=== PATIENT | male | born 1960 | race Caucasian/White ===

== ENCOUNTER 2017-05-18 16:00 | Emergency (ER) | payer MEDICAID ==
[~2017-05-18 16:00] MED LIST: AMOX/CLAVULANATE 500/125 MG TAB PO SCH
[2017-05-18 16:17] VITALS: RESP 18; TEMP 97.9
--- NOTE | 2017-05-18 17:07 | EDPHY ---
H & P Time Seen by Provider: 05/18/17 16:57 HPI/ROS: CHIEF COMPLAINT: "my tooth hurts " HISTORY OF PRESENT ILLNESS: 56-year-old homeless male history of poor dentition complaining of left maxillary molar pain since last evening. Atraumatic. No fall. No fever or chills. No nuchal rigidity. No nausea or vomiting. PHYSICAL EXAM (Prior to examination, patient consented to physical exam, hands were washed and my usual and customary physical exam procedures followed) 1) GENERAL: Well-developed, well-nourished, alert and oriented. Appears to be in no acute distress. 2) HEAD: Normocephalic 3) HEENT: sclera anicteric. Poor dentition. No trismus no drooling. Floor of mouth soft no evidence of Vern's angina. No facial asymmetry or swelling. Tender to percussion left maxillary molar, unknown specific number secondary to multiple missing teeth. No evidence of abscess. 4) LUNGS: Breathing comfortably. Smoking Status: Current every day smoker Constitutional: Initial Vital Signs Temperature (C) 36.6 C 05/18/17 16:14 Heart Rate 72 05/18/17 16:14 Respiratory Rate 18 05/18/17 16:14 Blood Pressure 126/78 H 05/18/17 16:14 O2 Sat (%) 97 05/18/17 16:14 O2 Delivery Mode Room Air Allergies/Adverse Reactions: No Known Allergies Allergy (Verified 04/28/16 16:50) Home Medications: Medication Instructions Recorded Amoxicillin Trihydrate 500 mg PO Q8 7 Days cap 05/18/17 [Amoxicillin 500mg cap] Hydrocodone/APAP 5/325 [[place] 1 tab PO Q6 PRN #7 tab 05/18/17 5/325 (RX)] MDM/Departure - MDM Procedures: Procedure: Dental nerve block Indication: Odontalgia Indications risks benefits discussed with patient and he consented. 0.5% plain bupivacaine administered my usual and customary fashion achieving anesthesia. Patient tolerated procedure well. ED Course/Re-evaluation: No evidence of dental abscess or Vern's angina. He agreed to dental nerve block see procedure note. Recommend he follow up with dental aid on Saturday ( today is Saturday). He does not have a cell phone or other means to contact him. He has been given dental aid information he may walk-in on Saturday.Care of patient under supervision of secondary supervising physician Dr Donohue . - Depart Disposition: Home, Routine, Self-Care Clinical Impression: Odontalgia Condition: Good Instructions: Toothache (ED) Additional Instructions: Recommend you go to the dental aid walk-in on Saturday, be there by 9:00 a.m. and a will work with you regarding payment Prescriptions: Amoxicillin Trihydrate [Amoxicillin 500mg cap] 500 mg PO Q8 7 Days cap Hydrocodone/APAP 5/325 [[place] 5/325 (RX)] 1 tab PO Q6 PRN #7 tab PRN Reason: Pain, Severe Referrals: Dental Aid [Outside] - As per Instructions
[2017-05-18] MEDS ORDERED: HYDROCOD/APAP 5/325 PREPACK#6 BTL TAKEHOME ONE (17:26)
[2017-05-18 17:28] VITALS: BP 126/80; PULSE 77; O2SAT 94
== END 2017-05-18 18:36 | disposition home or self-care (01) ==
PROC: 3E0X3BZ Introduction of Anesthetic Agent into Cranial Nerves, Percutaneous Approach (ICD-10-PCS; principal; 2017-05-18)
DX: K08.89 Other specified disorders of teeth and supporting structures (principal); F17.200 Nicotine dependence, unspecified, uncomplicated

== ENCOUNTER 2017-08-07 13:43 | Inpatient (IN) | payer SELFPAY ==
--- NOTE | 2017-08-07 14:56 | EDPHY ---
HPI/HX/ROS/PE/MDM Narrative: CHIEF COMPLAINT: Insomnia, lack of appetite. HISTORY OF PRESENT ILLNESS: This patient is a 56 year old male complaining of insomnia and lack of appetite ongoing for the past 8 days. He has felt weak and states he feels like he is "in a usp dream" and notes a lack of concentration. He endorses considerable stress recently due to a visit from his father for the first time in 6 years, and concern regarding his father's frailty and cancer diagnosis. He is currently homeless and has been living in his car, but stayed in a hotel with his father last week. He states "all I've been trying to do is stay warm and get through this". The patient denies any personal pertinent past medial history or diagnoses of any mental health disorders. He endorses crack cocaine use Saturday while staying with a friend. He denies any cardiac history. Additionally, the patient endorses urinary urgency beginning three days ago with associated dysuria and abnormal odor. He denies hematuria. He has had back pain and a mild headache. No measured fever or chills. No chest pain, shortness of breath, palpitations, vomiting, diarrhea. REVIEW OF SYSTEMS: Aside from elements discussed in the HPI, a comprehensive 10-point review of systems was reviewed and is negative. PAST MEDICAL HISTORY: Denies. SOCIAL HISTORY: Daily tobacco use. No alcohol use. Occasional illicit drug use. VITAL SIGNS: Reviewed by me GENERAL: Thin, resting comfortably in no respiratory distress. HEENT: Atraumatic. Eyes: No icterus, no injection. Mouth: moist mucous membranes. No erythema or lesions. Neck: supple with no adenopathy. LUNGS: Diminished, clear to auscultation posteriorly, mild wheezes anteriorly. No rhonchi or rales. CARDIAC: Regular rate and rhythm, no rubs, murmurs or gallops. ABDOMEN: Bilateral inguinal hernias, nontender, not incarcerated. Soft, nontender, nondistended, bowel sounds normal. BACK: Bilateral flank pain, worse on the left. No CVA tenderness. EXTREMITIES: No trauma. No edema. Range of motion is normal throughout. NEURO: Alert and oriented x3, grossly nonfocal. SKIN: Warm and dry, no rash. PSYCHIATRIC: Normal mentation, no agitation. Portions of this note were transcribed by a medical records supervisor. I personally performed a history, physical exam, medical decision making, and confirmed accuracy of information the transcribed note. ED Course: 56 y/o male presents with reported 8 day history of not sleeping or eating, as well as 3 day history of urinary urgency and dysuria. Exam reveals bilateral flank pain, worse on the left. Plan for labs including UA, CBC, chemistries, Troponin, liver, lipase, flu swab, coag, tox screen. Per nurse, the patient admitted to depression. Girlfriend last year , and he has had difficulty handling this along with his father's condition and his homelessness. 12-LEAD EKG: Please see the full report in [facility]. My interpretation: Sinus rhythm, rate 74. [Borderline T abnormalities in ant-lat leads] WBC elevated at 23,000. UA pending as the patient has not been able to provide a urine sample. Sodium low at 128. Lactic acid within normal limits. UA positive for UTI. Tox screen positive for cocaine. Plan to administer 1gm IV Rocephin. 17:30 Spoke with Evelina from Mental health who provide an evaluation. Pt endorses depression, denies suicidal or homicidal ideation. They provided 24 hour crisis number. Safe for d/c if medically cleared. Sepsis Evaluation: Patient presented to the Emergency Department with a suspected infection found to be UTI and but did not met criteria for sepsis defined as 2 of the following: Temperature greater than 38.3 or less than 36, HR greater than 90, RR greater than 20 or hypoxic, WBC greater than 12,000 or less than 4,00. Patient did not met criteria for severe sepsis and did NOT have demonstrate any of the following characteristics:Lactic acid greater than 2 , INR greater than 1.5, Platelets less than 100,000, bilirubin greater than 2, creatinine greater than 2, SBP less than 90 or MAP less than 65, need for intubation or PPV. Due to the patients homeless status, hyponatremia, significant leukocytosis, and evidence of UTI decision made to admit patient. 18:22 Consulted with hospitalist service. Dr. Bolanos accepts admission for UTI , hyponatremia, fatigue, weakness, depression. MDM: Diff dx for patients presenting complaints considered including but not limited to UTI, pyelonephritis, renal failure, dehydration, electrolyte abnormalities, cardiac causes. - Data Points Imaging Results: Imaging Impressions Chest X-Ray 08/07/17 15:05 Impression: No active cardiopulmonary disease seen. Imaging: I viewed and interpreted images myself Laboratory Results: Laboratory Results 08/07/17 14:35 08/07/17 14:35 08/07/17 08/07/17 08/07/17 17:30 16:28 15:50 WBC RBC Hgb Hct MCV MCH MCHC RDW Plt Count MPV Neut % (Auto) Lymph % (Auto) [place] % (Auto) Eos % (Auto) Baso % (Auto) Nucleat RBC Rel Count Absolute Neuts (auto) Absolute Lymphs (auto) Absolute Monos (auto) Absolute Eos (auto) Absolute Basos (auto) Absolute Nucleated RBC Immature Gran % Immature Gran # PT INR APTT VBG Lactic Acid 1.3 mmol/L mmol/L (0.7-2.1) Sodium Potassium Chloride Carbon Dioxide Anion Gap BUN Creatinine Estimated GFR Glucose Calcium Total Bilirubin Conjugated Bilirubin Unconjugated Bilirubin AST ALT Alkaline Phosphatase Troponin I Total Protein Albumin Lipase Urine Color YELLOW Urine Appearance MODERATELY TURBID Urine pH 6.0 (5.0-7.5) Ur Specific [place] 1.009 (1.002-1.030) Urine Protein 1+ H (NEGATIVE) Urine Ketones NEGATIVE (NEGATIVE) Urine Blood 2+ H (NEGATIVE) Urine Nitrate NEGATIVE (NEGATIVE) Urine Bilirubin NEGATIVE (NEGATIVE) Urine Urobilinogen 4.0 EU H EU (0.2-1.0) Ur Leukocyte Esterase 3+ H (NEGATIVE) Urine RBC 1-3 /hpf /hpf (0-3) Urine WBC 50-182 /hpf H /hpf (0-3) Ur Epithelial Cells NONE SEEN /lpf /lpf (NONE-1+) Urine Bacteria 3+ /hpf H /hpf (NONE SEEN) Urine Mucus TRACE /lpf /lpf (NONE-1+) Urine Glucose NEGATIVE (NEGATIVE) Nasal Influenza A PCR NEGATIVE FOR FLU A (NEGATIVE) Nasal Influenza B PCR NEGATIVE FOR FLU B (NEGATIVE) Urine Opiates Screen NEGATIVE (NEGATIVE) Urine Barbiturates NEGATIVE (NEGATIVE) Ur Phencyclidine Scrn NEGATIVE (NEGATIVE) Ur Amphetamine Screen NEGATIVE (NEGATIVE) U Benzodiazepines Scrn NEGATIVE (NEGATIVE) Urine Cocaine Screen NON-NEGATIVE H (NEGATIVE) U Marijuana (THC) Screen NEGATIVE (NEGATIVE) 08/07/17 08/07/17 08/07/17 14:35 14:35 14:35 WBC 23.37 10^3/uL H 10^3/uL (3.80-9.50) RBC 4.48 10^6/uL 10^6/uL (4.40-6.38) Hgb 13.3 g/dL L g/dL (13.7-17.5) Hct 37.1 % L % (40.0-51.0) MCV 82.8 fL fL (81.5-99.8) MCH 29.7 pg pg (27.9-34.1) MCHC 35.8 g/dL g/dL (32.4-36.7) RDW 12.4 % % (11.5-15.2) Plt Count 298 10^3/uL 10^3/uL (150-400) MPV 10.5 fL fL (8.7-11.7) Neut % (Auto) 78.5 % H % (39.3-74.2) Lymph % (Auto) 3.1 % L % (15.0-45.0) [place] % (Auto) 17.0 % H % (4.5-13.0) Eos % (Auto) 0.1 % L % (0.6-7.6) Baso % (Auto) 0.5 % % (0.3-1.7) Nucleat RBC Rel Count 0.0 % % (0.0-0.2) Absolute Neuts (auto) 18.35 10^3/uL H 10^3/uL (1.70-6.50) Absolute Lymphs (auto) 0.72 10^3/uL L 10^3/uL (1.00-3.00) Absolute Monos (auto) 3.98 10^3/uL H 10^3/uL (0.30-0.80) Absolute Eos (auto) 0.02 10^3/uL L 10^3/uL (0.03-0.40) Absolute Basos (auto) 0.11 10^3/uL H 10^3/uL (0.02-0.10) Absolute Nucleated RBC 0.00 10^3/uL 10^3/uL (0-0.01) Immature Gran % 0.8 % % (0.0-1.1) Immature Gran # 0.19 10^3/uL H 10^3/uL (0.00-0.10) PT 15.9 SEC H SEC (12.0-15.0) INR 1.25 H (0.83-1.16) APTT 33.7 SEC SEC (23.0-38.0) VBG Lactic Acid Sodium 128 mEq/L L mEq/L (135-145) Potassium 4.2 mEq/L mEq/L (3.5-5.2) Chloride 94 mEq/L L mEq/L (97-110) Carbon Dioxide 22 mEq/l mEq/l (22-31) Anion Gap 12 mEq/L mEq/L (8-16) BUN 23 mg/dL mg/dL (7-23) Creatinine 1.2 mg/dL mg/dL (0.7-1.3) Estimated GFR > 60 Glucose 134 mg/dL H mg/dL (70-100) Calcium 8.4 mg/dL L mg/dL (8.5-10.4) Total Bilirubin 1.4 mg/dL mg/dL (0.1-1.4) Conjugated Bilirubin 0.7 mg/dL H mg/dL (0.0-0.5) Unconjugated Bilirubin 0.7 mg/dL mg/dL (0.0-1.1) AST 21 IU/L IU/L (17-59) ALT 36 IU/L IU/L (21-72) Alkaline Phosphatase 111 IU/L IU/L (38-126) Troponin I < 0.012 ng/mL ng/mL (0.000-0.034) Total Protein 5.8 g/dL L g/dL (6.3-8.2) Albumin 3.1 g/dL L g/dL (3.5-5.0) Lipase 25 IU/L IU/L (23-300) Urine Color Urine Appearance Urine pH Ur Specific [place] Urine Protein Urine Ketones Urine Blood Urine Nitrate Urine Bilirubin Urine Urobilinogen Ur Leukocyte Esterase Urine RBC Urine WBC Ur Epithelial Cells Urine Bacteria Urine Mucus Urine Glucose Nasal Influenza A PCR Nasal Influenza B PCR Urine Opiates Screen Urine Barbiturates Ur Phencyclidine Scrn Ur Amphetamine Screen U Benzodiazepines Scrn Urine Cocaine Screen U Marijuana (THC) Screen Medications Given: Discontinued Medications Sodium Chloride (Ns) 1,000 mls @ 0 mls/hr IV ONCE ONE; Wide Open PRN Reason: Protocol Stop: 08/07/17 15:07 Last Admin: 08/07/17 14:30 Dose: 1,000 mls Ceftriaxone Sodium 1 gm/ (Sterile Water) 10 mls @ 150 mls/hr IV EDNOW ONE PRN Reason: Protocol Stop: 08/07/17 17:28 Last Admin: 08/07/17 18:27 Dose: 10 mls General Time Seen by Provider: 08/07/17 14:32 Initial Vital Signs: Initial Vital Signs Temperature (C) 36.8 C 08/07/17 14:04 Heart Rate 86 08/07/17 14:04 Respiratory Rate 16 08/07/17 14:04 Blood Pressure 95/71 L 08/07/17 14:04 O2 Sat (%) 95 08/07/17 14:04 O2 Delivery Mode Room Air Allergies/Adverse Reactions: No Known Allergies Allergy (Verified 08/07/17 14:04) Home Medications: Medication Instructions Recorded Cephalexin [Keflex (*)] 500 mg PO TID #42 cap 08/09/17 Tamsulosin HCl [Flomax 0.4 MG (*)] 0.4 mg PO DAILY #30 cap 08/09/17 Departure - Departure Disposition: [facility] Inpatient Acute Clinical Impression: Hyponatremia, Weakness Urinary tract infection Qualifiers: Urinary tract infection type: acute cystitis Hematuria presence: without hematuria Qualified Code(s): N30.00 - Acute cystitis without hematuria Depression Qualifiers: Depression Type: other depression Qualified Code(s): F32.89 - Other specified depressive episodes Condition: Fair Report Scribed for: Jen Moore Report Scribed by: Coral Martinez Date of Report: 08/07/17 Time of Report: 15:31
[2017-08-07] MEDS ORDERED: NS 1,000 ML IV ONE (15:06)
[2017-08-07 15:11] LABS: PLATELET COUNT 298 10^3/uL (150-400)
--- NOTE | 2017-08-07 15:32 | CPEKG ---
Heart Rate: 74 RR Interval: 811 P-R Interval: 156 QRSD Interval: 96 QT Interval: 380 QTC Interval: 422 P [place]: 76 QRS [place]: 79 T Wave [place]: 69 EKG Severity - BORDERLINE ECG - EKG Impression: SINUS RHYTHM EKG Impression: BORDERLINE T ABNORMALITIES, ANT-LAT LEADS Electronically Signed By: Jen Moore 07-Aug-2017 22:43:19
[2017-08-07 16:05] LABS: INR 1.25 (0.83-1.16); PROTIME(PATIENT) 15.9 SEC (12.0-15.0)
[2017-08-07] MEDS ORDERED: cefTRIAXone 1 GM in STERILE WATER INJ 10 ML IV ONE (17:25)
[2017-08-07] MEDS ORDERED: ONDANSETRON DISINTEGRATING 4 MG TAB PO PRN (19:19)
[2017-08-07] MEDS ORDERED: ONDANSETRON 4 MG/2 ML VIAL IVP PRN (19:19)
[2017-08-07] MEDS: NS 1,000 ML IV SCH (20:20)
[2017-08-07] MEDS: ACETAMINOPHEN 325 MG TAB PO PRN (20:20)
--- NOTE | 2017-08-07 21:06 | PDGENHP ---
History and Physical - Chief Complaint urinary urgency and dysuria and malaise - History of Present Illness This is a 56 yo homeless male who p/w worsening malaise, weakness, poor oral intake, urinary frequency, dysuria x several days. In the E.D. he was diagnosed with acute cystitis and started on Rocephin and IVF. He was also noted to have a Na of 128. We dont have any labs for comparison. He says he had been feeling his usual self until 5 days ago. Sx's have progressed. He denies any resp or CV symptoms. He has not been febrile. He denies focal weakness, fever. feels better since starting IVF PMHx: homelessness, denies all other, no CV disease, no resp disease, no chronic medical problems PSHx: none Social Hx: +tobacco, Negative ETOH, +Cannabis, +Cocaine FmHx: NC Labs: WBC 23, Na 128 VSS UA + LE, 3+ bacteria neg influenza CXR no acute findings History Information - Allergies/Home Medication List Allergies/Adverse Reactions: No Known Allergies Allergy (Verified 08/07/17 14:04) Home Medications: NK [No Known Home Meds] 08/07/17 [Last Taken Unknown] I have personally reviewed and updated: medical history, social history - Social History Smoking Status: Current every day smoker Review of Systems Review of Systems: ROS: 10pt was reviewed & negative except for what was stated in HPI & below Physical Exam Physical Exam: Temp Pulse Resp BP Pulse Ox 37.2 C 79 16 116/72 96 08/07/17 20:00 08/07/17 20:00 08/07/17 20:00 08/07/17 20:00 08/07/17 20:00 Constitutional: no apparent distress Eyes: PERRL, EOMI Ears, Nose, Mouth, Throat: dry mucous membranes Cardiovascular: regular rate and rhythym, No edema Respiratory: no respiratory distress, no rales or rhonchi, clear to auscultation Gastrointestinal: normoactive bowel sounds, soft, non-tender abdomen Genitourinary: no bladder fullness Skin: warm Musculoskeletal: full muscle strength Neurologic: AAOx3 (a) Psychiatric: interacting appropriately, not anxious, not encephalopathic Lymph, Heme, Immunologic: No petechiae Lab Data & Imaging Review 08/07/17 14:35 08/07/17 14:35 WBC 23.37 10^3/uL (3.80-9.50) H 08/07/17 14:35 RBC 4.48 10^6/uL (4.40-6.38) 08/07/17 14:35 Hgb 13.3 g/dL (13.7-17.5) L 08/07/17 14:35 Hct 37.1 % (40.0-51.0) L 08/07/17 14:35 MCV 82.8 fL (81.5-99.8) 08/07/17 14:35 MCH 29.7 pg (27.9-34.1) 08/07/17 14:35 MCHC 35.8 g/dL (32.4-36.7) 08/07/17 14:35 RDW 12.4 % (11.5-15.2) 08/07/17 14:35 Plt Count 298 10^3/uL (150-400) 08/07/17 14:35 MPV 10.5 fL (8.7-11.7) 08/07/17 14:35 Neut % (Auto) 78.5 % (39.3-74.2) H 08/07/17 14:35 Lymph % (Auto) 3.1 % (15.0-45.0) L 08/07/17 14:35 [place] % (Auto) 17.0 % (4.5-13.0) H 08/07/17 14:35 Eos % (Auto) 0.1 % (0.6-7.6) L 08/07/17 14:35 Baso % (Auto) 0.5 % (0.3-1.7) 08/07/17 14:35 Nucleat RBC Rel Count 0.0 % (0.0-0.2) 08/07/17 14:35 Absolute Neuts (auto) 18.35 10^3/uL (1.70-6.50) H 08/07/17 14:35 Absolute Lymphs (auto) 0.72 10^3/uL (1.00-3.00) L 08/07/17 14:35 Absolute Monos (auto) 3.98 10^3/uL (0.30-0.80) H 08/07/17 14:35 Absolute Eos (auto) 0.02 10^3/uL (0.03-0.40) L 08/07/17 14:35 Absolute Basos (auto) 0.11 10^3/uL (0.02-0.10) H 08/07/17 14:35 Absolute Nucleated RBC 0.00 10^3/uL (0-0.01) 08/07/17 14:35 Immature Gran % 0.8 % (0.0-1.1) 08/07/17 14:35 Immature Gran # 0.19 10^3/uL (0.00-0.10) H 08/07/17 14:35 PT 15.9 SEC (12.0-15.0) H 08/07/17 14:35 INR 1.25 (0.83-1.16) H 08/07/17 14:35 APTT 33.7 SEC (23.0-38.0) 08/07/17 14:35 VBG Lactic Acid 1.3 mmol/L (0.7-2.1) 08/07/17 17:30 Sodium 128 mEq/L (135-145) L 08/07/17 14:35 Potassium 4.2 mEq/L (3.5-5.2) 08/07/17 14:35 Chloride 94 mEq/L (97-110) L 08/07/17 14:35 Carbon Dioxide 22 mEq/l (22-31) 08/07/17 14:35 Anion Gap 12 mEq/L (8-16) 08/07/17 14:35 BUN 23 mg/dL (7-23) 08/07/17 14:35 Creatinine 1.2 mg/dL (0.7-1.3) 08/07/17 14:35 Estimated GFR > 60 08/07/17 14:35 Glucose 134 mg/dL (70-100) H 08/07/17 14:35 Calcium 8.4 mg/dL (8.5-10.4) L 08/07/17 14:35 Total Bilirubin 1.4 mg/dL (0.1-1.4) 08/07/17 14:35 Conjugated Bilirubin 0.7 mg/dL (0.0-0.5) H 08/07/17 14:35 Unconjugated Bilirubin 0.7 mg/dL (0.0-1.1) 08/07/17 14:35 AST 21 IU/L (17-59) 08/07/17 14:35 ALT 36 IU/L (21-72) 08/07/17 14:35 Alkaline Phosphatase 111 IU/L (38-126) 08/07/17 14:35 Troponin I < 0.012 ng/mL (0.000-0.034) 08/07/17 14:35 Total Protein 5.8 g/dL (6.3-8.2) L 08/07/17 14:35 Albumin 3.1 g/dL (3.5-5.0) L 08/07/17 14:35 Lipase 25 IU/L (23-300) 08/07/17 14:35 Urine Color YELLOW 08/07/17 16:28 Urine Appearance MODERATELY TURBID 08/07/17 16:28 Urine pH 6.0 (5.0-7.5) 08/07/17 16:28 Ur Specific [place] 1.009 (1.002-1.030) 08/07/17 16:28 Urine Protein 1+ (NEGATIVE) H 08/07/17 16:28 Urine Ketones NEGATIVE (NEGATIVE) 08/07/17 16:28 Urine Blood 2+ (NEGATIVE) H 08/07/17 16:28 Urine Nitrate NEGATIVE (NEGATIVE) 08/07/17 16:28 Urine Bilirubin NEGATIVE (NEGATIVE) 08/07/17 16:28 Urine Urobilinogen 4.0 EU (0.2-1.0) H 08/07/17 16:28 Ur Leukocyte Esterase 3+ (NEGATIVE) H 08/07/17 16:28 Urine RBC 1-3 /hpf (0-3) 08/07/17 16:28 Urine WBC 50-182 /hpf (0-3) H 08/07/17 16:28 Ur Epithelial Cells NONE SEEN /lpf (NONE-1+) 08/07/17 16:28 Urine Bacteria 3+ /hpf (NONE SEEN) H 08/07/17 16:28 Urine Mucus TRACE /lpf (NONE-1+) 08/07/17 16:28 Urine Glucose NEGATIVE (NEGATIVE) 08/07/17 16:28 Nasal Influenza A PCR NEGATIVE FOR FLU A (NEGATIVE) 08/07/17 15:50 Nasal Influenza B PCR NEGATIVE FOR FLU B (NEGATIVE) 08/07/17 15:50 Urine Opiates Screen NEGATIVE (NEGATIVE) 08/07/17 16:28 Urine Barbiturates NEGATIVE (NEGATIVE) 08/07/17 16:28 Ur Phencyclidine Scrn NEGATIVE (NEGATIVE) 08/07/17 16:28 Ur Amphetamine Screen NEGATIVE (NEGATIVE) 08/07/17 16:28 U Benzodiazepines Scrn NEGATIVE (NEGATIVE) 08/07/17 16:28 Urine Cocaine Screen NON-NEGATIVE (NEGATIVE) H 08/07/17 16:28 U Marijuana (THC) Screen NEGATIVE (NEGATIVE) 08/07/17 16:28 Assessment & Plan Assessment: #Acute cystitis #Hyponatremia, likely acute to subacute, likely due to volume deficit #Dehydration #Leukocytosis #Cocaine abuse #Generalized Weakness Admit IVF, will go gently given low Na Serial Na cont Rocephin Await cultures PT SCD's Full Code
[2017-08-08 06:05] LABS: PLATELET COUNT 301 10^3/uL (150-400)
[2017-08-08] MEDS ORDERED: cefTRIAXone 1 GM in STERILE WATER INJ 10 ML IV SCH (09:00)
[2017-08-08] MEDS: ACETAMINOPHEN 325 MG TAB PO PRN ×2 (09:19→20:11)
[2017-08-08] MEDS: NS 1,000 ML IV SCH ×2 (12:47→23:32)
[2017-08-08] MEDS ORDERED: cefTRIAXone 1 GM in STERILE WATER INJ 10 ML IV ONE (14:00)
--- NOTE | 2017-08-08 14:35 | HOSPPROG ---
Hospitalist Progress Note Assessment/Plan: 56 yo M w UTI and gm neg bacteremia gnr bacteremia: source is urine increase ceftriaxone to 2 q 24 repeat cx in AM UTI: suspect 2/2 new bph may be prostatitis ceftriaxone bph: add flomax hyponatremia: resolved proph: lmwh dispo: inpt Subjective: febrile this AM. endorses several weeks of urinary sx and recent difficulty w urinary sx. cxr w no infiltrate (interp by me) Objective: Vital Signs Temp Pulse Resp BP Pulse Ox 36.7 C 83 18 103/61 92 08/08/17 09:30 08/08/17 08:37 08/08/17 08:37 08/08/17 08:37 08/08/17 08:37 Laboratory Results 08/08/17 05:53 08/08/17 05:53 08/07/17 08/08/17 08/09/17 05:59 05:59 05:59 Intake Total 3380 Output Total 550 1950 Balance 2830 -1950 PT 15.9 SEC (12.0-15.0) H 08/07/17 14:35 INR 1.25 (0.83-1.16) H 08/07/17 14:35 - Physical Exam Constitutional: no apparent distress, appears nourished Eyes: PERRL, anicteric sclera Ears, Nose, Mouth, Throat: moist mucous membranes, hearing normal Cardiovascular: regular rate and rhythym, no murmur, rub, or gallop Respiratory: no respiratory distress, no rales or rhonchi Gastrointestinal: normoactive bowel sounds, soft, non-tender abdomen Genitourinary: no bladder fullness, No mathew in urethra Skin: warm, normal color Musculoskeletal: full muscle strength, no muscle tenderness Neurologic: AAOx3, sensation intact bilaterally Psychiatric: interacting appropriately, No encephalopathic Lymph, Heme, Immunologic: no cervical LAD ICD10 Worksheet Patient Problems: Problems Problem Status Onset Depression Acute Hyponatremia Acute Urinary tract infection Acute Weakness Acute
--- NOTE | 2017-08-08 15:54 | PDMN ---
Medical Necessity Medical necessity: Patient meets inpatient criteria per physician note and [facility] [place] M -160 Sepsis and Other Febrile Illness, without Focal Infection (UTI and GNR bacteremia; febrile to 102; poss new bph/prostatitis;increasing IV ceftriaxone to 2 grams/24 hrs; LOS will be > 2 midnights.)
[2017-08-08] MEDS: TAMSULOSIN HCL 0.4 MG CAP PO SCH (16:12)
[2017-08-08] MEDS: NICOTINE POLACRILEX 2 MG GUM B PRN ×2 (20:11→23:33)
[2017-08-09] MEDS ORDERED: TAMSULOSIN HCL 0.4 MG CAP PO SCH
[2017-08-09] MEDS ORDERED: CEPHALEXIN 500 MG CAP PO SCH
[2017-08-09 05:26] VITALS: RESP 16; O2SAT 95
[2017-08-09] MEDS: NICOTINE POLACRILEX 2 MG GUM B PRN ×2 (05:28→09:46)
[2017-08-09] MEDS ORDERED: ENOXAPARIN 40 MG/0.4 ML SYR SC SCH (09:00)
[2017-08-09] MEDS ORDERED: cefTRIAXone 2 GM in STERILE WATER INJ 20 ML IV SCH (09:00)
[2017-08-09 09:20] VITALS: BP 106/56; PULSE 66; TEMP 98.8
[2017-08-09] MEDS: TAMSULOSIN HCL 0.4 MG CAP PO SCH (09:45)
[2017-08-09] MEDS: ACETAMINOPHEN 325 MG TAB PO PRN (10:20)
[2017-08-09] MEDS: NS 1,000 ML IV SCH (12:13)
--- NOTE | 2017-08-09 13:35 | HOSPPROG ---
Hospitalist Progress Note Assessment/Plan: 56 yo M w UTI and gm neg bacteremia gnr bacteremia: source is urine increase ceftriaxone to 2 q 24 repeat cx neg thus far streat 17 days w abx, 14 add'l w keflex UTI: suspect 2/2 new bph may be prostatitis ceftriaxone bph: add flomax hyponatremia: resolved proph: lmwh dispo: home today > 30 minutes Objective: Vital Signs Temp Pulse Resp BP Pulse Ox 37.1 C 66 16 106/56 L 95 08/09/17 09:15 08/09/17 09:15 08/09/17 09:15 08/09/17 09:15 08/09/17 09:15 08/08/17 08/09/17 08/10/17 05:59 05:59 05:59 Intake Total 2250 Output Total 3600 1000 Balance -1350 -1000 PT 15.9 SEC (12.0-15.0) H 08/07/17 14:35 INR 1.25 (0.83-1.16) H 08/07/17 14:35 - Physical Exam Constitutional: no apparent distress, appears nourished Eyes: PERRL, anicteric sclera Ears, Nose, Mouth, Throat: moist mucous membranes, hearing normal Cardiovascular: regular rate and rhythym, no murmur, rub, or gallop Respiratory: no respiratory distress, no rales or rhonchi Gastrointestinal: normoactive bowel sounds, soft, non-tender abdomen Genitourinary: No mathew in urethra Skin: warm Musculoskeletal: full muscle strength ICD10 Worksheet Patient Problems: Problems Problem Status Onset Depression Acute Hyponatremia Acute Urinary tract infection Acute Weakness Acute
--- NOTE | 2017-08-09 15:33 | ASMTCMCOM ---
CM Note CM Note Notes: Pt admitted with UTI. Pt ready for DC today. Pt is homeless and has no money. His prescriptions filled through the [facility]. He has a f/u appt at [facility] on Aug 12 at 10:45 with ODELL Douglass. Reserved a bed at the [facility]term for tonight. Date Signed: 08/09/2017 03:33 PM Electronically Signed By:Raissa Mcgrath LCSW
--- NOTE | 2017-08-10 01:43 | GDS ---
[f rep st] DISCHARGE SUMMARY DISCHARGE DIAGNOSES: 1. Sepsis. 2. Complicated urinary tract infection. 3. Escherichia coli bacteremia. 4. Benign prostatic hypertrophy with possible prostatitis. HOSPITAL COURSE: Please see admission History and Physical by Dr. Kwesi Bolanos. The patient presen [place]udson with fever, chills. He has had urinary symptoms for about a month, and going back a year, he has BPH type symptoms with hesitancy and incomplete voiding, and frequency. On presentation, he was found to have a markedly positive UA and fever. Blood cultures grew out E co li. The patient was never hypotensive. Cultures have cleared. The patient was started on ceftriaxo ne, it is a largely pansensitive E. coli. He is discharged today to complete a 2-1/2 week course of antibiotics with 3 additional weeks of Kefl ex as well as Flomax. /[id number]/MODL
== END 2017-08-09 16:59 | disposition home or self-care (01) | DRG 872 ==
LOC: F1N 19:41 → OBSVTOIN 08-08 15:40
PROVIDERS: ADMIT Family Medicine; ATTEND Family Medicine
DX: A41.51 Sepsis due to Escherichia coli [E. coli] (principal); N39.0 Urinary tract infection, site not specified; N40.1 Benign prostatic hyperplasia with lower urinary tract symptoms; N41.9 Inflammatory disease of prostate, unspecified; F32.89 Other specified depressive episodes; Z59.0 Homelessness; F14.10 Cocaine abuse, uncomplicated; E86.0 Dehydration
CPT/HCPCS: 80305; 96374; 97161-GP; G0378; J0696; J1650

== ENCOUNTER 2017-10-14 15:35 | Emergency (ER) | payer MEDICAID ==
[~2017-10-14 15:35] MED LIST changes: -AMOX/CLAVULANATE 500/125 MG TAB PO SCH; +CEPHALEXIN 500 MG CAP PO SCH; +TAMSULOSIN HCL 0.4 MG CAP PO SCH
--- NOTE | 2017-10-14 15:55 | EDPHY ---
H & P Stated Complaint: painful urination, fever/chills, weakness Time Seen by Provider: 10/14/17 15:41 HPI/ROS: CHIEF COMPLAINT: "I think I have a recurring UTI" HISTORY OF PRESENT ILLNESS: The patient is a transient 57 y/o male with BPH and prior urosepsis admission 2 months ago complaining of chills, dysuria, and difficulty urinating onset a few days ago. He says, "my urinary performance doesn't exist anymore." He describes urinary hesitancy, dysuria, polyuria, malodorous urine, and inability to empty his bladder. Today he was shivering and shaking for at least 30 minutes while lying in a sleeping bag at a friend's house and felt hot like he had a fever. He woke later covered in sweat. He denies vomiting, diarrhea, abdominal pain, flank pain, dyspnea, or other complaints. REVIEW OF SYSTEMS: A ten point review of systems was performed and is negative with the exception of the items mentioned in the HPI. Past medical history: 1. Urosepsis admission 08/08/17 2. UTI 3. BPH and probable prostatitis 4. Alcoholism, sober for 27+ years 5. Bilateral inguinal hernias Past surgical history: Denies Family history: Noncontributory Prior medical records reviewed including admission 08/08/17 for urosepsis. Social history: Transient, sleeping indoors at friends' houses. Smokes cigarettes. Sober. Cocaine use, though not for a few weeks. General Appearance: Alert. Vital signs reviewed. Afebrile. BP: 102/59. Eyes: Pupils equal and round, no conjunctival injection, no discharge. Anicteric. ENT, Mouth: Mucous membranes are moist, no oropharyngeal erythema or edema. Neck: No lymphadenopathy, supple. Respiratory: Lungs are clear but distant to auscultation; no wheezes, rales, or rhonchi. Cardiovascular: Regular rate and rhythm; no murmur, rub, or gallop. Gastrointestinal: Abdomen is soft and nontender, no masses or organomegaly. Skin: Warm and dry, no rashes on exposed skin, normal color. Back: Nontender to palpation over the thoracolumbar spine. No CVAT. Extremities: No lower extremity edema, no calf tenderness or swelling. Neurological: Alert and oriented. Moving all four extremities easily and equally. Psychiatric: Normal affect. - Personal History Current Tetanus/Diphtheria Vaccine: Unsure Current Tetanus Diphtheria and Acellular Pertussis (TDAP): Unsure - Medical/Surgical History Hx Asthma: No Hx Chronic Respiratory Disease: No Hx Diabetes: No Hx Cardiac Disease: No Hx Renal Disease: No Hx Cirrhosis: No Hx Alcoholism: Yes Hx HIV/AIDS: No Hx Splenectomy or Spleen Trauma: No Other PMH: Inguinal hernia, 25 years alcohol free, PNA, UTI - Social History Smoking Status: Light smoker Constitutional: Initial Vital Signs Temperature (C) 36.4 C 10/14/17 15:42 Heart Rate 72 10/14/17 15:42 Respiratory Rate 20 10/14/17 15:42 Blood Pressure 102/59 L 10/14/17 15:42 O2 Sat (%) 96 10/14/17 15:42 O2 Delivery Mode Room Air Allergies/Adverse Reactions: No Known Allergies Allergy (Verified 10/14/17 15:41) Home Medications: Medication Instructions Recorded Tamsulosin HCl [Flomax 0.4 MG (*)] 0.4 mg PO DAILY #30 cap 08/09/17 Cephalexin [Keflex] 500 mg PO TID #30 cap 10/14/17 Tamsulosin HCl [Flomax] 0.4 mg PO DAILY #20 cap 10/14/17 Medical Decision Making ED Course/Re-evaluation: This is a 57 y/o male with a history of BPH and UTI who presents with dysuria, polyuria, and urinary hesitancy. Exam is unremarkable. He does not appear septic and is afebrile. Plan for UA and bladder scan. Patient has been able to urinate here after hydration without issue. UA indicates UTI. Urine will be sent for culture. He will be discharged with a script for Keflex as this worked well for him after prior admission. Case management will follow up with him tomorrow to help schedule a follow up appointment at [facility] for him. He understands care and follow up instructions. Return precautions discussed. Differential Diagnosis: I considered a differential diagnosis that includes but is not limited to urinary tract infection, pyelonephritis, urinary retention, BPH, prostatitis, and sepsis. - Data Points Medications Given: Discontinued Medications Cephalexin HCl (Keflex) 500 mg PO EDNOW ONE PRN Reason: Protocol Stop: 10/14/17 18:54 Last Admin: 10/14/17 19:29 Dose: 500 mg Tamsulosin HCl (Flomax) 0.4 mg PO EDNOW ONE Stop: 10/14/17 19:00 Last Admin: 10/14/17 19:29 Dose: 0.4 mg Departure - Departure Disposition: Home, Routine, Self-Care Clinical Impression: Urinary tract infection Qualifiers: Urinary tract infection type: acute cystitis Hematuria presence: without hematuria Qualified Code(s): N30.00 - Acute cystitis without hematuria Condition: Good Instructions: Cephalexin (By mouth), Urinary Tract Infection in Men (ED) Additional Instructions: 1. Take antibiotics (Keflex) as prescribed. Be sure to complete the entire prescription. 2. Use Tylenol and ibuprofen as directed as needed for pain or fever over the next few days. 3. Follow up with your primary care provider this week. 4. Return to the ED for worsening of condition. Adult Pain & Fever Control: We recommend Acetaminophen (Tylenol) and Ibuprofen (Motrin,Advil) for pain and fever control. When fever is high or pain severe, both drugs can be used at the same time, but at different intervals. Please note the time differences. Your dose is: Acetaminophen 650mg every 4 to 6 hours Ibuprofen 600mg every 6-8 hours with food Note: do not take Acetaminophen with Hydrocodone (Vicodin, Lortab) or Oxycodone (Percocet). These medications also contain Acetaminophen. No more than 3000mg of Acetaminophen should be taken in 24 hours (for an adult). Referrals: [facility],. [Clinic] - As per Instructions Prescriptions: Cephalexin [Keflex] 500 mg PO TID #30 cap Tamsulosin HCl [Flomax] 0.4 mg PO DAILY #20 cap Report Scribed for: Serina Mccoy Report Scribed by: Yohana Cruz Date of Report: 10/14/17 Time of Report: 15:57 Physician Review and Approval Statement: 10/18/17 15:50 Portions of this note were transcribed by the front office medical assistant. I, Dr. Serina Mccoy, personally performed the history, physical exam, and medical decision- making; and confirmed the accuracy of the information in the transcribed note.
[2017-10-14] MEDS ORDERED: CEPHALEXIN 500 MG CAP PO ONE (18:53)
[2017-10-14] MEDS ORDERED: TAMSULOSIN HCL 0.4 MG CAP PO ONE (18:59)
[2017-10-14 19:36] VITALS: BP 141/85
--- NOTE | 2017-10-15 18:51 | ASMTCMCOM ---
CM Note CM Note Notes: Per ED MD request, followed up with [facility] ([phone]), spoke with Cathy and she said pt had an appointment on 08/12/17 but no-showed and hasn't been seen there since. This CM requested that pt's assigned care team reach out to patient to schedule follow-up appt due to his ongoing urinary tract infections and/or bladder issues. Cathy says she will put a note in and have someone reach out to the patient. Date Signed: 10/15/2017 06:50 PM Electronically Signed By:Brittni Ball RN
--- NOTE | 2017-10-15 18:54 | ASDISCHSUM ---
Discharge Information Plan Status:Homeless/Fdc Medically Cleared to Leave: Discharge Date:10/14/2017 07:37 PM CM D/C Disposition:Streets (Homeless) ADT D/C Disposition:Home, Routine, Self-Care Projected Discharge Date:10/14/2017 07:37 PM Transportation at D/C:None or Unknown Discharge Delay Reason: Follow-Up Date:10/14/2017 07:37 PM Discharge Slot: Final Diagnosis: Placement Information Patient Contact Information Contact Name:SAURAV Relationship:Sister Address:[address] [address] Work Phone: 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 This CM requested that pt's assigned care team reach out to patient to schedule follow-up appt due to his ongoing urinary tract infections and/or bladder issues. Cathy says she will put a note in and have someone reach out to the patient. Date Signed: 10/15/2017 06:50 PM Electronically Signed By:Brittni Ball RN Intervention Information Intervention Type:Health Clinic Date of Service:10/15/2017 06:53 PM Patient Type:Emergency Room Staff Member:SIGRID Ball, Brittni Hours:0.25 Discipline:End Worker Severity: Comment:[facility] care coordination
== END 2017-10-14 19:37 | disposition home or self-care (01) ==
DX: N30.00 Acute cystitis without hematuria (principal); B96.20 Unspecified Escherichia coli [E. coli] as the cause of diseases classified elsewhere; F17.200 Nicotine dependence, unspecified, uncomplicated

== ENCOUNTER 2017-11-22 18:45 | Emergency (ER) | payer MEDICAID ==
[2017-11-22] MEDS ORDERED: NS 1,000 ML IV ONE (19:22)
--- NOTE | 2017-11-22 19:27 | EDPHY ---
H & P Stated Complaint: pt c/o uti and right lower back pain, finished abx 3 weeks ago for uti Source: Patient, Old records Exam Limitations: No limitations - Personal History Current Tetanus Diphtheria and Acellular Pertussis (TDAP): Unsure - Medical/Surgical History Hx Asthma: No Hx Chronic Respiratory Disease: No Hx Diabetes: No Hx Cardiac Disease: No Hx Renal Disease: No Hx Cirrhosis: No Hx Alcoholism: Yes Hx HIV/AIDS: No Hx Splenectomy or Spleen Trauma: No - Social History Smoking Status: Current every day smoker Time Seen by Provider: 11/22/17 19:23 HPI/ROS: HPI: This is a 57-year-old male who presents with Chief Complaint: pt c/o uti and right lower back pain, finished abx 3 weeks ago for uti Location: Quality: Urinary hesitancy Duration: 1 and half days Signs and Symptoms: + subjective fever, no nausea, no vomiting, no hematemesis, no blood in stool, no abdominal bloating, no diarrhea, no back pain, +urinary symptoms, no testicular/groin pain, no indigestion, no chest pain, no shortness of breath Timing: Acute, constant Severity: Moderate Context: Patient presents with 1 and half day history of urinary hesitancy, urinary frequency, and urinating only scant amounts of urine at a time. Patient denies any burning with urination or penile discharge or testicular groin pain. Patient reports that he has felt warm and lower back pain as well. Reports that his mouth feels dry for the last 2 days and he has been trying to drink large amounts of water. Chart review shows that in August of 2017, patient was diagnosed and admitted to the hospital for E coli bacteremia and urinary tract infection. He completed Rocephin as well as outpatient to weeks of Keflex. He then was seen in this emergency room on 10/14/2017 with similar symptoms but only occurring for the last 1-2 days. Patient reports that he does not feel "that sick." Patient was discharged in August on Flomax any supposed to be taking daily but admits that he is noncompliant. 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 He complains of soreness "at times." Modifying Factors: Comment: ROS: see HPI Constitutional: No fever, no chills, no weight loss Eyes: No blurred vision Respiratory: No shortness of breath, no cough Cardiovascular: No chest pain, no palpitations Gastrointestinal: No nausea, no vomiting, no diarrhea, no hematemesis, no blood in stool Genitourinary: No dysuria, no blood in urine Extremities: No myalgias, no edema Neurologic: No weakness, no numbness Skin: No rashes, no petechiae Hematologic: No bruising, no bleeding MEDICAL/SURGICAL/SOCIAL HISTORY: Medical history: Bilateral Inguinal hernias, 25 years alcohol free, pneumonia, urosepsis, E coli bacteremia Surgical history: Denies Social history: Homeless. Every day tobacco user. Family history noncontributory. CONSTITUTIONAL: Nontoxic appearing adult white male, polite and cooperative, awake and alert, no obvious distress HEENT: Atraumatic and normocephalic, PERRL, EOMI. Nares patent; no rhinorrhea; no nasal mucosal edema. Tympanic membranes clear. Oropharynx clear, no exudate and moist pink mucosa. Airway patent. No lymphadenopathy. No meningismus. Cardiovascular: Normal S1/S2, regular rate, regular rhythm, without murmur rub or gallop. PULMONARY/CHEST: Symmetrical and nontender. Clear to auscultation bilaterally. Good air movement. No accessory muscle usage. ABDOMEN: Soft, nondistended, nontender, no rebound, no guarding, no peritoneal signs, no masses or organomegaly. No CVAT. EXTREMITIES: 2/2 pulses, strength 5/5, no deformities, no clubbing, no cyanosis or edema. NEUROLOGICAL: no focal neuro deficits. GCS 15. SKIN: Warm and dry, no erythema. no rash. Good capillary refill. (Ramirez,Terra) Constitutional: Initial Vital Signs Temperature (C) 36.2 C 11/22/17 19:01 Heart Rate 72 11/22/17 19:01 Respiratory Rate 16 11/22/17 19:01 O2 Sat (%) 99 11/22/17 19:01 O2 Delivery Mode Room Air Allergies/Adverse Reactions: No Known Allergies Allergy (Verified 10/14/17 15:41) Home Medications: Medication Instructions Recorded Tamsulosin HCl [Flomax] 0.4 mg PO DAILY #20 cap 10/14/17 Sulfamethox/Tmp 800/160 mg 1 tab PO BID #20 tab 11/22/17 [Bactrim Ds] Tamsulosin HCl [Flomax 0.4 MG (*)] 0.4 mg PO DAILY #20 cap 11/22/17 Medical Decision Making ED Course/Re-evaluation: Labs, urinalysis, IV fluids ordered Vital signs reviewed and stable upon arrival. No systemic signs. Clinically does not appear to be septic. no indication for blood cultures. Abdomen soft and nontender and doubt surgical process. Urine cultures reviewed from passed to visits and grew E coli sensitive to cephalosporins, Bactrim and fluoroquinolones. Patient is appropriate to treat outpatient. He has already establish care at [facility] in chart review shows that he has been noncompliant with his follow-up appointments. Given 2 g Rocephin and Flomax and a prescription for Bactrim and Flomax This patient was seen under the supervision of my secondary supervising physician. I evaluated care for this patient independently. Discussed this patient with Dr. Moore who did not see the patient. (Hawa Guzmán) Differential Diagnosis: Differential diagnosis includes but is not limited to benign prostatic hypertrophy, prostatitis, lower urinary tract infection, pyelonephritis, sepsis. (Hawa Guzmán) Other Provider: The patient was evaluated and managed by the Physician Baseboard Heating Installer. I discussed the patient's presentation and course with the midlevel provider with them and agree with the evaluation. My co-signature indicates that I have reviewed this chart and I agree with the findings and plan of care as documented. I am the secondary supervising physician. (Jen Moore) - Data Points Laboratory Results: Laboratory Results 11/22/17 19:27 11/22/17 19:27 Microbiology Results: MICROBIOLOGY 11/22/17 19:07 Urine,Clean Catch Urine Culture - Final Escherichia Coli One Breaks Type Medications Given: Discontinued Medications Sodium Chloride (Ns) 1,000 mls @ 0 mls/hr IV ONCE ONE; Wide Open PRN Reason: Protocol Stop: 11/22/17 19:23 Last Admin: 11/22/17 19:25 Dose: 1,000 mls Ceftriaxone Sodium 2 gm/ (Sterile Water) 20 mls @ 300 mls/hr IV EDNOW ONE PRN Reason: Protocol Stop: 11/22/17 20:39 Last Admin: 11/22/17 20:54 Dose: 20 mls Tamsulosin HCl (Flomax) 0.4 mg PO EDNOW ONE Stop: 11/22/17 20:38 Last Admin: 11/22/17 20:54 Dose: 0.4 mg Departure - Departure Disposition: Home, Routine, Self-Care Clinical Impression: Lower urinary tract infection, acute, BPH (benign prostatic hyperplasia) Condition: Good Instructions: Urinary Retention in Men (ED), Urinary Tract Infection in Men (ED ) Additional Instructions: Consume a minimum of 8-10 glasses of water or electrolyte fluid replacement drinks that include Gatorade, Powerade, Pedialyte. Take Bactrim twice daily for the next 10 days starting tomorrow. Take Flomax every morning. Please follow-up in 1-2 weeks at the [facility]. Referrals: [facility],. [Clinic] - As per Instructions Prescriptions: Sulfamethox/Tmp 800/160 mg [Bactrim Ds] 1 tab PO BID #20 tab Tamsulosin HCl [Flomax 0.4 MG (*)] 0.4 mg PO DAILY #20 cap
[2017-11-22 19:43] LABS: PLATELET COUNT 270 10^3/uL (150-400)
[2017-11-22] MEDS ORDERED: cefTRIAXone 2 GM in STERILE WATER INJ 20 ML IV ONE (20:36)
[2017-11-22] MEDS ORDERED: TAMSULOSIN HCL 0.4 MG CAP PO ONE (20:37)
[2017-11-22 21:01] VITALS: BP 111/61
== END 2017-11-22 21:00 | disposition home or self-care (01) ==
DX: N40.1 Benign prostatic hyperplasia with lower urinary tract symptoms (principal); E86.9 Volume depletion, unspecified; F17.200 Nicotine dependence, unspecified, uncomplicated
CPT/HCPCS: 96374; J0696

== ENCOUNTER 2018-03-31 17:17 | Emergency (ER) | payer MEDICAID ==
[~2018-03-31 17:17] MED LIST changes: +AMOXICILLIN/CLAVULANATE POT 875/125 MG TAB PO SCH; -CEPHALEXIN 500 MG CAP PO SCH; -TAMSULOSIN HCL 0.4 MG CAP PO SCH
[2018-03-31 17:25] VITALS: BP 116/91
--- NOTE | 2018-03-31 18:03 | EDPHY ---
H & P Smoking Status: Current every day smoker Time Seen by Provider: 03/31/18 17:38 HPI/ROS: CHIEF COMPLAINT: Left upper dental pain HISTORY OF PRESENT ILLNESS: Patient is a 57-year-old male was homeless here with complaint of 1 week of worsening left upper dental pain. He does have a history of dental caries and dental infections. He is nose no fever, trouble swallowing, neck pain or stiffness, facial swelling. Has no allergy to antibiotics. REVIEW OF SYSTEMS: Constitutional: No fever, no chills. Eyes: No discharge. ENT: No sore throat. Cardiovascular: No chest pain, no palpitations. Respiratory: No cough, no shortness of breath. Gastrointestinal: No abdominal pain, no vomiting. Genitourinary: No hematuria. Musculoskeletal: No back pain. Skin: No rashes. Neurological: No headache. (Gunnar Gómez) Physical Exam: General Appearance: Alert and no distress. Eyes: Pupils equal and round no injection. Respiratory: Chest is nontender, lungs are clear to auscultation. Cardiac: regular rate and rhythm. Gastrointestinal: Abdomen is soft and nontender, no masses, bowel sounds normal. Musculoskeletal: Neck is supple and nontender. Extremities have full range of motion and are nontender. Skin: No rashes or lesions. Oral: Diffuse dental decay with multiple dental caries. Left upper gingiva shows mild inflammation without abscess. (Gunnar Gómez) Constitutional: Initial Vital Signs Temperature (C) 36.6 C 03/31/18 17:22 Heart Rate 86 03/31/18 17:22 Respiratory Rate 18 03/31/18 17:22 Blood Pressure 116/91 H 03/31/18 17:22 O2 Sat (%) 97 03/31/18 17:22 O2 Delivery Mode Room Air Allergies/Adverse Reactions: No Known Allergies Allergy (Verified 03/31/18 17:25) Home Medications: Medication Instructions Recorded Amoxicillin/Potassium Clav 1 each PO BID #14 tablet 03/31/18 [Amox-Clav 875-125 mg Tablet] Chlorhexidine Gluconate 15 ml MM BID 7 Days #1 mouthwash 03/31/18 Medical Decision Making ED Course/Re-evaluation: The patient was evaluated and managed by the physician library serials assistant. I have reviewed this chart and I agree with the findings and plan of care as documented , as indicated by my signature. I am the secondary supervising physician. ( Serina Mccoy) Differential Diagnosis: Dental abscess, gingivitis, retro pharyngeal abscess, meningitis (Gunnar Gómez) - Data Points Medications Given: Discontinued Medications Amoxicillin/Clavulanate Potassium (Augmentin 875mg) 875 mg PO EDNOW ONE PRN Reason: Protocol Stop: 03/31/18 18:00 Last Admin: 03/31/18 18:08 Dose: 875 mg Departure - Departure Disposition: Home, Routine, Self-Care Condition: Good Instructions: Toothache (ED) Referrals: NONE *PRIMARY CARE P,. [Primary Care Provider] - As per Instructions Prescriptions: Amoxicillin/Potassium Clav [Amox-Clav 875-125 mg Tablet] 1 each PO BID #14 tablet Chlorhexidine Gluconate 15 ml MM BID 7 Days #1 mouthwash
[2018-03-31] MEDS: AMOXICILLIN/CLAVULANATE POT 875/125 MG TAB PO ONE (18:08)
== END 2018-03-31 18:41 | disposition home or self-care (01) ==
DX: K08.89 Other specified disorders of teeth and supporting structures (principal); Z59.0 Homelessness

== ENCOUNTER 2018-06-19 10:30 | Emergency (ER) | payer MEDICAID ==
--- NOTE | 2018-06-19 11:49 | EDPHY ---
H & P Smoking Status: Current every day smoker Time Seen by Provider: 06/19/18 11:35 HPI/ROS: CLINICAL IMPRESSION: Pediculosis ASSESSMENT/PLAN: 57-year-old homeless male presents to the emergency department with concerns of lice after he saw several bug fall out of his hair this morning. On exam, patient does have several small isolated nits. He was given a prescription for permethrin lotion. PCP follow-up encouraged, contact precautions discussed, warning signs return to ED outlined and discharge DIFFERENTIAL DX: Pediculosis, dermatitis, dandruff CHIEF COMPLAINT: I think I have lice HPI: 57-year-old homeless male presents to the emergency department with a chief complaint of "I think I have lice". Patient reports brushing some bugs out of his hair this morning. No rash, fever. PAST MEDICAL HISTORY: None reported Pertinent Past Surgical History: None reported Family History: Noncontributory Social History: Patient reports he is homeless ROS: A full 10 point review of systems was negative except for those mentioned in HPI. PHYSICAL EXAM: General Appearance: Alert, oriented, appropriate, cooperative, NAD, well hydrated, non-toxic appearing, VSS, no hypoxia. HEENT: TMs are clear bilaterally no perforation or FB, no injection, no evidence of serous or mucopurulent otitis. Oropharynx clear is no erythema or exudates, no tonsillar hypertrophy or asymmetry. Dentition without abnormality. Several small scattered nits noted on hair shafts of head Neck: Supple, nontender, no lymphadenopathy, no midline pain, FROM, no meningismus. Respiratory: There are no retractions, lungs are clear to auscultation. Cardiac: Regular rate and rhythm, no murmurs or gallops. Skin: Warm, dry, no rashes, no nodules on palpation. MEDICAL DECISION MAKING: Patient was seen independently. Secondary supervising physician at time of evaluation was Dr. Nguyen . Diagnosis: Pediculosis. New, requires workup Summary: See Assessment and Plan for summary of ED visit Patient Progress: Stable. (Lonnie Rivera) Constitutional: Initial Vital Signs Temperature (C) 36.3 C 06/19/18 10:36 Heart Rate 82 06/19/18 10:36 Respiratory Rate 18 06/19/18 10:36 Blood Pressure 128/87 H 06/19/18 10:36 O2 Sat (%) 98 06/19/18 10:36 O2 Delivery Mode Room Air Allergies/Adverse Reactions: No Known Allergies Allergy (Verified 06/19/18 10:35) Home Medications: Medication Instructions Recorded Permethrin [Lice Treatment] 59 ml TP ONCE #1 lotion 06/19/18 MDM/Departure - [facility] ED Course/Re-evaluation: I did not see this patient while he was in the emergency department. However his care was discussed with the PA while the patient was in the department. I agree with treatment plan and management (Carlos Nguyen) - Depart Disposition: Home, Routine, Self-Care Clinical Impression: Head lice Condition: Good Instructions: Pediculosis (ED) Additional Instructions: Please use the prescription lotion we gave you to treat the lice. It is very important that you call all the lights out of her hair. Please read discharge instructions for further information. Follow up with a primary care provider. If you do not have one a referral was given. Return to the ED for worsening symptoms or any other concerns. Stand Alone Forms: Work Excuse Prescriptions: Permethrin [Lice Treatment] 59 ml TP ONCE #1 lotion Referrals: NONE *PRIMARY CARE P,. [Primary Care Provider] - As per Instructions [facility],. [Clinic] - As per Instructions
[2018-06-19 12:12] VITALS: BP 139/86
== END 2018-06-19 12:29 | disposition home or self-care (01) ==
DX: B85.0 Pediculosis due to Pediculus humanus capitis (principal); Z59.0 Homelessness

== ENCOUNTER 2018-12-23 18:44 | Emergency (ER) | payer OTHER, MEDICAID | END 2018-12-23 20:17 | disposition home or self-care (01) ==